=== PATIENT | male | born 1955 | race Caucasian/White ===

== ENCOUNTER 2017-06-13 23:25 | Inpatient (IN) | END 2017-06-23 17:12 | disposition home or self-care (01) | DRG 246 ==

== ENCOUNTER 2017-11-04 10:39 | Emergency (ER) | END 2017-11-04 11:54 | disposition home or self-care (01) ==

== ENCOUNTER 2017-11-04 17:12 | Emergency (ER) | END 2017-11-04 18:20 | disposition home or self-care (01) ==

== ENCOUNTER 2018-10-19 18:41 | Inpatient (IN) | payer OTHER ==
[~2018-10-19] VITALS: Ht 170.2 cm; Wt 84.7 kg
[~2018-10-19 18:41] MED LIST: ASPI-817 PO; ASPI81TA52 PO; ATOR-2 PO; BUME1TAB PO; CARV25TA79 PO; CLOP75TA27 PO; ERGO500013 PO; ERYT1OIN6 OP; HYDR-3672 PO; HYDR-4011 PO; INSU100C SQ; ISOS120T15 PO; ISOS30TA67 PO; LANT3I SC; LISI-313 PO; METO200T49 PO; MULTI PO; TICA90TA PO
[2018-10-19] MEDS ORDERED: morphine 4 MG/ML VIAL IV STA (19:17)
--- NOTE | 2018-10-19 19:31 | ERD ---
ER Documentation Chief Complaint Chief Complaint headache x 2 hours. just got dc'd from [facility], hx of nstemi, esrd HPI 62-year-old male with a history of CAD, CABG, CKD recently started on dialysis presenting with complaints of left-sided posterior severe 10 out of 10 neck pain that started 2 hours prior to arrival. He was just discharged home from another hospital, [facility], after a 2-week admission. Symptoms started 1 hour after d ischarge. He was reportedly admitted for shortness of breath. Had PCI with stent placement, after which he developed renal failure requiring dialysis. Today they remove the dialysis catheter from his left neck and placed one in his right chest. Currently denies any chest pain or shortness of breath, his only complaint is left-sided posterior neck pain that radiates into the back of his left head. Describes it as a stabbing pain, with no alleviating or exacerbating factors, pain is constant. He has never felt this before. No acute weakness or numbness. No dizziness. ROS All systems reviewed and are negative except as per history of present illness. Medications Home Meds Reported Medications Ergocalciferol (Vitamin D2) (VITAMIN D2) 50,000 Unit Capsule, 50817 UNIT PO EVERY WEDNESDAY, CAP 10/19/18 Multivitamins* (Theragran*) 1 Tab Tab, 1 TAB PO DAILY, TAB 10/19/18 Insulin Glargine* (Lantus*) 100 Unit/Ml Soln, 40 UNIT SC QHS, #1 VIAL 10/19/18 Hydralazine Hcl* (Hydralazine Hcl*) 50 Mg Tab, 50 MG PO TID, #90 TAB 10/19/18 Isosorbide Mononitrate* (Isosorbide Mononitrate*) 120 Mg Tab.sr.24h, 180 MG PO DAILY, TAB.SA 10/19/18 Lisinopril* (Lisinopril*) 5 Mg Tablet, 5 MG PO DAILY, #30 TAB 10/19/18 Metoprolol Succinate* (Toprol XL*) 200 Mg Tab.sr.24h, 200 MG PO DAILY, #30 TAB 10/19/18 Bumetanide* (Bumetanide*) 1 Mg Tablet, 1 MG PO BID, TAB 10/19/18 Clopidogrel Bisulfate (Clopidogrel) 75 Mg Tablet, 75 MG PO DAILY, #30 TAB 10/19/18 Atorvastatin* (Atorvastatin*) 80 Mg Tablet, 80 MG PO QHS, #30 TAB 10/19/18 Aspirin (Low Dose Aspirin) 81 Mg Tablet., 81 MG PO DAILY, #30 TAB 10/19/18 Discontinued Reported Medications Insulin Lispro (Humalog) 100 Unit/1 Ml Cartridge, 10 UNIT SQ AC MEALS, EA 06/13/17 Atorvastatin* (Atorvastatin*) 80 Mg Tablet, 80 MG PO QHS, #30 TAB 06/13/17 Carvedilol* (Carvedilol*) 25 Mg Tablet, 25 MG PO BID, #60 TAB 06/13/17 Discontinued Scripts Hydrocodone/Acetaminophen ([place] 5-325 Tablet) 1 Each Tablet, 1 TAB PO Q6H PRN for PAIN, #20 TAB Prov:YUE ZAMUDIO DO 11/04/17 Erythromycin Base (Erythromycin) 1 Gm Oint...g., 1 GM OP QID for corneal abrasion left eye for 7 Days, #1 Prov:YUE ZAMUDIO DO 11/04/17 Bumetanide* (Bumetanide*) 1 Mg Tablet, 1 MG PO DAILY, #30 TAB 3 Refills Prov:VELASQUEZ,PERFECTO V. FEATHER BONER 06/23/17 Isosorbide Mononitrate* (Isosorbide Mononitrate*) 30 Mg Tab.er.24h, 30 MG PO DAILY, #30 TAB 3 Refills Prov:VELASQUEZ,PERFECTO V. FEATHER BONER 06/23/17 Ticagrelor* (Brilinta*) 90 Mg Tablet, 90 MG PO BID, #30 TAB 3 Refills Prov:VELASQUEZ,PERFECTO V. FEATHER BONER 06/23/17 Aspirin* (Aspirin* EC) 81 Mg Tablet., 81 MG PO DAILY, #30 TAB 3 Refills Prov:VELASQUEZ,PERFECTO V. FEATHER BONER 06/23/17 Insulin Glargine* (Lantus*) 100 Unit/Ml Soln, 44 UNIT SC daily at 8 am, #30 DOSE Prov:VELASQUEZ,PERFECTO V. FEATHER BONER 06/23/17 Allergies Allergies: Coded Allergies: No Known Allergy (Unverified , 10/19/18) PMhx/Soc History of Surgery: Yes (cabg 2003 , pacer october 2016, abdominal aortic surgery NOS) Anesthesia Reaction: Yes Hx Neurological Disorder: No Hx Respiratory Disorders: No Hx Cardiac Disorders: Yes (pvd,htn) Hx Psychiatric Problems: No Hx Miscellaneous Medical Probl: No Hx Alcohol Use: No Hx Substance Use: No Hx Tobacco Use: No FmHx Family History: coronary disease Physical Exam Vitals Vital Signs Date Temp Pulse Resp B/P (MAP) Pulse Ox O2 O2 Flow FiO2 Time Delivery Rate 10/19/18 59 14 107/42 99 Room Air 21:00 (63) 10/19/18 66 14 114/46 99 Room Air 19:00 (68) 10/19/18 98.2 66 18 119/52 98 18:50 (74) Physical Exam Const: Appears to be in significant distress due to pain Head: Atraumatic Eyes: Normal Conjunctiva, PERRLA, EOMI, no nystagmus ENT: Normal External Ears, Nose and Mouth. Neck: Full range of motion. No meningismus. No midline or paraspinal muscle tenderness to palpation. Chest ; left anterior neck puncture wound healing from old HD catheter. Right upper chest HD catheter in place. Resp: Clear to auscultation bilaterally Cardio: Sternotomy scar noted to chest. Regular rate and rhythm, no murmurs. Difficult to palpate peripheral pulses, thready in all 4 extremities Abd: Midline abdominal surgical scar noted. No pulsatile masses. Soft, non tender, non distended. Normal bowel sounds Skin: No petechiae or rashes Back: No midline or flank tenderness Ext: No cyanosis, or edema Neur: Awake and alert, oriented x3, normal speech, cranial nerves intact, strength and sensations intact in all 4 extremities. Psych: Normal Mood and Affect Result Diagram: 10/19/18191510/19/181915 Results 24 hrs Laboratory Tests Test 10/19/18 19:16 White Blood Count 14.1 10^3/ul Red Blood Count 3.57 10^6/ul Hemoglobin 9.8 g/dl Hematocrit 29.4 % Mean Corpuscular Volume 82.4 fl Mean Corpuscular Hemoglobin 27.5 pg Mean Corpuscular Hemoglobin Concent 33.3 g/dl Red Cell Distribution Width 15.9 % Platelet Count 238 10^3/UL Mean Platelet Volume 12.4 fl Immature Granulocytes % 0.900 % Neutrophils % 74.0 % Lymphocytes % 10.9 % Monocytes % 13.3 % Eosinophils % 0.4 % Basophils % 0.5 % Nucleated Red Blood Cells % 0.0 /100WBC Immature Granulocytes # 0.120 10^3/ul Neutrophils # 10.4 10^3/ul Lymphocytes # 1.5 10^3/ul Monocytes # 1.9 10^3/ul Eosinophils # 0.1 10^3/ul Basophils # 0.1 10^3/ul Nucleated Red Blood Cells # 0.0 10^3/ul Prothrombin Time 13.4 Sec Prothrombin Time Ratio 1.0 INR International Normalized Ratio 1.01 Activated Partial Thromboplast Time 32.2 Sec Sodium Level 132 mmol/L Potassium Level 4.8 mmol/L Chloride Level 99 mmol/L Carbon Dioxide Level 18 mmol/L Anion Gap 15 Blood Urea Nitrogen 70 mg/dl Creatinine 5.15 mg/dl Est Glomerular Filtrat Rate mL/min 11 mL/min Glucose Level 196 mg/dl Calcium Level 8.7 mg/dl Troponin I 0.129 ng/ml Current Medications Medications Dose Sig/Jc Start Time Status Last (Trade) Ordered Route PRN Stop Time Admin Dose Reason Admin Morphine 6 mg ONCE STAT 10/19/18 DC 10/19/18 Sulfate IV 19:17 19:24 (morphine) 10/19/18 19:19 10 mg ONCE ONCE 10/19/18 DC 10/19/18 Metoclopramid IV 20:00 20:06 e HCl 10/19/18 20:01 (Reglan) IV Flush 10 ml STK-MED 10/19/18 DC (NS 10 ml) ONCE .ROUTE 20:35 10/19/18 20:36 Sodium 100 ml @ ud STK-MED 10/19/18 DC Chloride ONCE .ROUTE 20:35 10/19/18 20:36 Iodixanol 100 ml STK-MED 10/19/18 DC (Visipaque ONCE .ROUTE 20:35 Locm) 10/19/18 20:36 Fentanyl 50 mcg ONCE ONCE 10/19/18 DC 10/19/18 (Sublimaze) IV 22:00 21:57 10/19/18 22:01 Ondansetron 4 mg ER BRIDGE 10/19/18 HCl (Zofran PRN IV 23:00 10/20/18 Inj) NAUSEA/VOMITI 22:59 NG 650 mg ER BRIDGE 10/19/18 Acetaminophen PRN PO 23:00 10/20/18 (Tylenol .MILD PAIN 22:59 Tab) 1-3 OR TEMP IV Flush 3 ml PER 10/19/18 UNV (NS 3 ml) PROTOCOL IV 23:00 Ondansetron 4 mg Q6H PRN 10/19/18 UNV HCl (Zofran IV 23:00 Inj) NAUSEA/VOMITI NG 1 tab Q5M PRN 10/19/18 UNV Nitroglycerin SL .CHEST 23:00 PAIN (Nitroglyceri n (Sl Tab) 0.4 Mg) 650 mg Q6H PRN 10/19/18 UNV Acetaminophen PO .PAIN 1-3 23:00 (Tylenol OR TEMP Tab) Albuterol/ 3 ml Q2H RESP 10/19/18 UNV Ipratropium THERAPY PRN 23:00 (Duoneb) HHN SHORTNESS OF BREATH Aspirin 81 mg DAILY PO 10/20/18 UNV (Halfprin) 09:00 80 mg QHS PO 10/20/18 UNV Atorvastatin 21:00 Calcium (Lipitor) Bumetanide 1 mg BID PO 10/20/18 UNV (Bumex) 09:00 Clopidogrel 75 mg DAILY PO 10/20/18 UNV Bisulfate 09:00 (plaVIX) Insulin 40 units QHS SC 10/20/18 UNV Glargine 21:00 (Lantus) Isosorbide 180 mg DAILY PO 10/20/18 UNV Mononitrate 09:00 (Imdur) Lisinopril 5 mg DAILY PO 10/20/18 UNV (Zestril) 09:00 Metoprolol 200 mg DAILY PO 10/20/18 UNV Succinate 09:00 (Toprol Xl) 1 tab DAILY PO 10/20/18 UNV Multivitamins 09:00 Therapeutic (Theragran) Procedures/MDM EMERGENT LABS AND DIAGNOSTIC STUDIES: Lab Results above were reviewed and interpreted by me. CBC: Leukocytosis, unclear etiology. Mild anemia. BMP: Evidence of chronic renal failure with elevated BUN and creatinine. No significant electrolyte abnormalities. Hyperglycemic. Troponin elevated, concerning for possible myocardial injury versus elevation due to ESRD 12-lead EKG was interpreted by Eulalio Pires MD: A Paced at rate of 60 beats per minute Incomplete left bundle branch block LVH with repolarization abnormality Abnormal EKG, no STEMI Radiology Results as interpreted by Radiology below were reviewed by Destiny Pires MD: Chest x-ray does not show any significant abnormalities other than evidence of mild interstitial edema Initial Nursing notes reviewed. Previous Medical Records requested via the Electronic Health Record. EMERGENCY DEPARTMENT COURSE / MEDICAL DECISION MAKING: patient is presenting with severe left-sided posterior neck pain of unclear etiology. Vitals were notable for borderline hypotension. He was neurologi star intact on my exam. However given his history of vascular disease, I was concerned about possible carotid versus vertebral dissection. Discussed risks and benefits of CTA. Family and patient were agreeable. CTA was done and did not show any evidence of acute occlusion or dissection. CT head was also negative for intracranial hemorrhage. Patient was treated for pain without significant improvement of his symptoms. Troponin was slightly elevated, but I suspect this is likely secondary to decreased clearance due to kidney disease and less likely non-ST elevation VT. In any case, I do not feel the patient is stable for discharge and will require admission for further work-up. He will also need dialysis due to the contrast load he received today. Emergent bedside echocardiogram was also ordered and did not show any evidence of pericardial effusion or tamponade. Results are pending. Dr. Salazar, cattle trader personal lines sales executive, was notified of the patient Accepting Care Team: Current data and ongoing care discussed. Time: Time of admission Primary Provider: Dr. Mi Consulting: Dr. Salazar Outstanding Data: none Departure Diagnosis: Primary Impression: Posterior neck pain Additional Impressions: Headache Headache type: unspecified Headache chronicity pattern: acute headache Intractability: intractable Qualified Codes: R51 - Headache ESRD on hemodialysis Elevated troponin Condition: RL Whittington MD Oct 19, 2018 19:31
[2018-10-19] MEDS ORDERED: METOCLOPRAMIDE 10 MG INJ IV ONE (20:00)
[2018-10-19] MEDS ORDERED: SOD CHLORIDE 0.9% 100 ML ONE (20:35)
[2018-10-19] MEDS ORDERED: IODIXANOL LOCM 100 ML BTL ONE (20:35)
[2018-10-19] MEDS ORDERED: FENTAnyl 50 MCG/ML VIAL IV ONE (22:00)
[2018-10-19] MEDS ORDERED: ONDANSETRON 4 MG INJ IV PRN ×2 (23:00)
[2018-10-19] MEDS ORDERED: ACETAMINOPHEN 325 MG TAB PO PRN ×2 (23:00)
[2018-10-19] MEDS ORDERED: NITROGLYCERIN (SL) 0.4 MG TAB SL PRN (23:00)
[2018-10-19] MEDS ORDERED: ALBUTEROL/IPRATROPIUM (NEB) 3 ML AMP HHN PRN (23:00)
[2018-10-19] MEDS ORDERED: NACL 0.9% 3 ML SYG IV SCH (23:00)
--- NOTE | 2018-10-19 23:00 | HP ---
Date/Time of Note Date/Time of Note DATE: 10/19/18 TIME: 23:00 Assessment/Plan VTE Prophylaxis Pharmacological prophylaxis: heparin Lines/Catheters IV Catheter Type (from Nrsg): Saline Lock Assessment/Plan Assessment/Plan 1. Left-sided neck pain -CT angiogram with multiple arterial occlusion, including right internal carotid occlusion, severe focal stenosis of right cervical vertebral artery and left internal carotid severe calcification and narrowing. -I am not sure if his pain is actually related to this. -Pain management -Vascular surgeon lelo 2. Bilateral internal carotid, right cervical vertebral artery occlusion/stenosis -Patient pointed to the right side of his neck and said " closed long time", so it seems like we are mainly dealing with a chronic issue here -Vascular surgeon consult 3. Positive troponin -Patient recently had a stent placed at [facility] and as such rise in troponin is related to that as well as ESRD -Cardiology consult -Continue antiplatelet and cardiac medications 4. History of CAD and CABG -See #3 5. ESRD on HD: Nephrology for dialysis 6. Cardiomyopathy with systolic dysfunction: Continue cardiac meds including Bumex 7. Diabetes: Check A1c. Insulin Result Diagram: 10/19/18191510/19/181915 Results 24hrs Laboratory Tests Test 10/19/18 19:16 White Blood Count 14.1 #H Red Blood Count 3.57 L Hemoglobin 9.8 L Hematocrit 29.4 L Mean Corpuscular Volume 82.4 Mean Corpuscular Hemoglobin 27.5 L Mean Corpuscular Hemoglobin Concent 33.3 Red Cell Distribution Width 15.9 H Platelet Count 238 # Mean Platelet Volume 12.4 H Immature Granulocytes % 0.900 H Neutrophils % 74.0 Lymphocytes % 10.9 L Monocytes % 13.3 H Eosinophils % 0.4 Basophils % 0.5 Nucleated Red Blood Cells % 0.0 Immature Granulocytes # 0.120 H Neutrophils # 10.4 H Lymphocytes # 1.5 Monocytes # 1.9 H Eosinophils # 0.1 Basophils # 0.1 Nucleated Red Blood Cells # 0.0 Prothrombin Time 13.4 Prothrombin Time Ratio 1.0 INR International Normalized Ratio 1.01 Activated Partial Thromboplast Time 32.2 Sodium Level 132 L Potassium Level 4.8 Chloride Level 99 Carbon Dioxide Level 18 L Anion Gap 15 H Blood Urea Nitrogen 70 H Creatinine 5.15 H Est Glomerular Filtrat Rate mL/min 11 L Glucose Level 196 Calcium Level 8.7 Troponin I 0.129 *H HPI/ROS Admit Date/Time Admit Date/Time Hx of Present Illness Patient is a 62-year-old male with a history of CAD/CABG, cardiomyopathy with systolic dysfunction, PAD, diabetes, ESRD on HD. Patient presented to ER complaining of left-sided neck pain, which is been going on for 1 day. Patient was admitted to [facility] recently where stent was placed. He also said he was a started on dialysis. He was just discharged yesterday and when he gets home that when left-sided neck pain started. He also complains of having had headache. No limitation with range of motion. Denied trauma. In the ER, head CT shows old lacunar infarct. CT angiogram of the head and neck results as shown below. Patient was not surprised about the CT angiogram finding. He pointed to the right side of his neck and said " closed long time". In the ER, he also was found to have a positive troponin of 0.129. ER physician discussed finding with on-call vacuum bottle assembler, Dr. Salazar. EKG showed incomplete LBBB, no ST elevation or depression. CTA neck: 1. Occlusion of the right internal carotid artery at its origin, continuing to the intracranial segment.. 2. Moderate to prominent calcification at the left carotid bifurcation, with 40% stenosis of the proximal left ICA. Mild to moderate areas of narrowing of the distal left cervical ICA. 3. Severe focal stenosis of the right cervical vertebral artery at the C4 level. Moderate stenosis at the origin of the left vertebral artery. CTA head: 4. Partial reconstitution of the right cavernous and supraclinoid ICA. 5. Patent right middle cerebral artery, moderately decreased in caliber, likely related to decreased flow. Moderate to severe proximal narrowing of the right anterior cerebral artery A1 segment. 6. Moderate to severe calcification and narrowing through the cavernous left internal carotid artery. 7. Moderate focal stenosis of the right intracranial vertebral artery, and mild to moderate areas of narrowing of the left intracranial vertebral artery. 8. Moderate stenosis of the left posterior cerebral artery, the P2 segment, and moderate narrowing of the right posterior cerebral artery, P3 segment. PMH/Family/Social Past Medical History Medical History: other (See HPI) Medications Current Medications Ondansetron HCl (Zofran Inj) 4 mg ER BRIDGE PRN IV NAUSEA/VOMITING; Start at 23:00; Stop 10/20/18 at 22:59 Acetaminophen (Tylenol Tab) 650 mg ER BRIDGE PRN PO .MILD PAIN 1-3 OR TEMP; Start 10/19/18 at 23:00; Stop 10/20/18 at 22:59 Coded Allergies: No Known Allergy (Unverified , 10/19/18) Past Surgical History Past Surgical Hx: angioplasty, coronary bypass surgery Family History Significant Family History: heart disease, diabetes, hypertension Social History Alcohol Use: none Smoking Status: Never smoker Drug Use: none Exam/Review of Systems Vital Signs Vitals Vital Signs Date Temp Pulse Resp B/P (MAP) Pulse Ox O2 O2 Flow FiO2 Time Delivery Rate 10/19/18 59 14 107/42 99 Room Air 21:00 (63) 10/19/18 98.2 18:50 Exam Constitutional: other (No acute distress) Head: normocephalic, atraumatic Eyes: EOMI, PERRL Neck: other (Examination of the neck did not reveal any obvious deformity. No tenderness. He has full range of motion.) Respiratory: clear to auscultation, normal air movement Cardiovascular: regular rate and rhythm, nl pulses Gastrointestinal: soft, non-tender Extremities: normal pulses Neurological: nl mental status, nl speech, nl strength TUYET STEWART MD Oct 19, 2018 23:00
[2018-10-19] MEDS ORDERED: SOD CHLORIDE 0.9% 500 ML IV STA (23:35)
[2018-10-20] VITALS (20 sets, daily range): BP systolic 107–148; BP diastolic 55–97; PULSE 58–101; RESP 16–20; Ht 170.2 cm; Wt 84.7 kg
[2018-10-20] MEDS: BUMETANIDE 1 MG TAB PO SCH ×2 (05:31→17:43)
[2018-10-20] MEDS ORDERED: HEPARIN 1000 UNITS/ML 10 ML INJ IV PRN ×2 (07:30)
[2018-10-20] MEDS: LISINOPRIL 5 MG TAB PO SCH (08:09)
[2018-10-20] MEDS: MULTIVITAMINS THERAPEUTIC TAB PO SCH (08:09)
[2018-10-20] MEDS: ISOSORBIDE MONONITRATE(SR)60 MG TAB PO SCH (08:09)
[2018-10-20] MEDS: CLOPIDOGREL 75 MG TAB PO SCH (08:10)
[2018-10-20] MEDS: ASPIRIN (EC) 81 MG TAB PO SCH (08:10)
[2018-10-20] MEDS: HEPARIN 25000 UNITS/D5W 250 ML IV SCH ×2 (08:24→17:23)
[2018-10-20] MEDS ORDERED: METOPROLOL (XL) 100 MG TAB PO SCH (09:00)
--- NOTE | 2018-10-20 14:10 | RADRPT ---
Echocardiogram Report Patient Name: Guerline YORKtient ID: [id number] : 1955 (62y 11m)Study Date: 10/20/2018 8:56:35 AM Gender: MAccession #: [id number] Tech: Trace Santana [facility] Location: 7-A Ref.Physician: TUYET STEWART Height(Cm): BSA: Weight(Kg): Quality: AdequateOrder Physician: TUYET STEWART Account #: Procedures: Echocardiographic Report: Transthoracic echocardiogram with complete 2D, M-Mode, and doppler examination. Indications: Positive Troponin. Measurements: 2D/M Mode Doppler Measurement Value Normal Range Measurement Value Normal Range LVIDd 2D 5.2 [ 4.2 - 5.8 ] cm AV Peak Catr[place] 1.2 [ 100.0 - 170.0 ] cm/sec LVIDs 2D 4.1 [ 2.5 - 4.0 ] cm AV Peak PG 6.0 [ 2.0 - 9.0 ] mmHg LVPWd 2D 1.2 [ 0.6 - 1.0 ] cm LVOT Peak [place] 0.7 [ 70.0 - 110.0 ] cm/sec IVSd 2D 1.2 [ 0.6 - 1.0 ] cm LVOT Peak PG 2.0 [ 2.0 - 6.0 ] mmHg AoR Diam 2D 2.8 [ 2.6 - 3.4 ] cm MV E Peak Catracho 1.2 [ 60.0 - 130.0 ] cm/sec EDV 2D 128.0 [ 62.0 - 150.0 ] ml MV A Peak Catracho 0.3 [ 100.0 - 120.0 ] cm/sec ESV 2D 72.5 [ 21.0 - 61.0 ] ml MV E/A 4.5 [ 0.8 - 1.5 ] ratio EF 2D 43.4 [ 52.0 - 72.0 ] percent MV Decel Time 194 [ 104 - 258 ] msec LA Dimen 2D 4.3 [ 3.0 - 4.0 ] cm Lat E` Catracho 0.1 [ 10.0 - 15.0 ] cm/sec Lateral E/E` 19.2 [ 1.0 - 2.0 ] ratio Med E` Catracho 0.1 cm/sec MV E/A 4.5 [ 0.8 - 1.5 ] ratio TR Peak Catracho 3.0 [ 100.0 - 280.0 ] cm/sec TR Peak PG 35.0 mmHg RVSP 50.0 [ 10.0 - 36.0 ] mmHg Findings: Left Ventricle: Normal left ventricular cavity size. Left ventricular wall thickness upper limits of normal. Mild global left ventricular systolic dysfunction. Paradoxical septal motion consistent with IVCD or bundle branch block. Ejection fraction is visually estimated at 40-45 %. Tissue Doppler/Mitral Doppler indices are consistent with restrictive physiology with markedly elevated left atrial pressure (Stage III-IV diastolic dysfunction). Right Ventricle: Normal right ventricular size. Normal right ventricular systolic function. Left Atrium: There is mild enlargement of left atrium. Right Atrium: The right atrium is normal in size. Mitral Valve: Mild mitral leaflet calcification. Mild mitral annular calcification. Mild mitral valve regurgitation. Aortic Valve: No significant aortic stenosis or insufficiency. Aortic cusps appear mildly calcified. Tricuspid Valve: Normal appearance of the tricuspid valve. The estimated Peak RVSP is 50 mmHg. There is mild tricuspid regurgitation. Pericardium: Normal pericardium with no significant pericardial effusion. Aorta: Normal aortic root. IVC: Dilated inferior vena cava with poor inspiratory collapse consistent with elevated right atrial pressures. Conclusions: Normal left ventricular cavity size. Left ventricular wall thickness upper limits of normal. Mild global left ventricular systolic dysfunction. Paradoxical septal motion consistent with IVCD or bundle branch block. Ejection fraction is visually estimated at 40-45 %. Tissue Doppler/Mitral Doppler indices are consistent with restrictive physiology with markedly elevated left atrial pressure (Stage III-IV diastolic dysfunction). There is mild enlargement of left atrium. Mild mitral leaflet calcification. Mild mitral annular calcification. Mild mitral valve regurgitation. Normal appearance of the tricuspid valve. The estimated Peak RVSP is 50 mmHg. There is mild tricuspid regurgitation. Normal pericardium with no significant pericardial effusion. Left pleural effusion seen. Electronically Signed By: Laureano Salazar 2018-10-20 14:10:31 PDT
--- NOTE | 2018-10-20 14:16 | RADRPT ---
Echocardiogram Report Patient Name: Guerline YORKtient ID: [id number] : 1955 (62y 11m)Study Date: 10/19/2018 10:40:29 PM Gender: MAccession #: [id number] Tech: Trace Santana [facility] Location: ER-4 Ref.Physician: RL STRINGER Height(Cm): BSA: Weight(Kg): Quality: AdequateOrder Physician: RL STRINGER Account #: Procedures: Echocardiographic Report: Transthoracic echocardiogram examination. Indications: R/O Effusion. Measurements: 2D/M Mode Doppler Measurement Value Normal Range Measurement Value Normal Range LVIDd 2D 5.5 [ 4.2 - 5.8 ] cm TR Peak Catracho 3.1 [ 100.0 - 280.0 ] cm/sec LVIDs 2D 3.9 [ 2.5 - 4.0 ] cm TR Peak PG 38.0 mmHg IVSd 2D 1.0 [ 0.6 - 1.0 ] cm RVSP 46.0 [ 10.0 - 36.0 ] mmHg AoR Diam 2D 2.7 [ 2.6 - 3.4 ] cm LA Dimen 2D 4.1 [ 3.0 - 4.0 ] cm Findings: Left Ventricle: Normal left ventricular cavity size. Mild left ventricular systolic dysfunction. Normal left ventricular wall thickness. Paradoxical septal motion consistent with IVCD or left bundle branch block. The left ventricular ejection fraction is visually estimated at 45-50 %. Right Ventricle: Normal right ventricular systolic function. Left Atrium: There is mild enlargement of left atrium. Right Atrium: The right atrium is normal in size and appearance. Mitral Valve: Mild mitral annular calcification. Calcified Leaflets Mitral valve leaflet appear mildly clacified. Mild mitral regurgitation. Aortic Valve: Aortic cusps appear mildly calcified. Tricuspid Valve: Normal appearance of the tricuspid valve. The estimated Peak RVSP is 46 mmHg. There is mild tricuspid regurgitation. Pericardium: Normal pericardium with no significant pericardial effusion. IVC: Dilated inferior vena cava with normal respiratory collapse. Conclusions: Normal left ventricular cavity size. Mild left ventricular systolic dysfunction. Normal left ventricular wall thickness. Paradoxical septal motion consistent with IVCD or left bundle branch block. The left ventricular ejection fraction is visually estimated at 45-50 %. Normal right ventricular systolic function. There is mild enlargement of left atrium. Mild mitral annular calcification. Calcified Leaflets Mitral valve leaflet appear mildly clacified. Mild mitral regurgitation. Normal appearance of the tricuspid valve. The estimated Peak RVSP is 46 mmHg. There is mild tricuspid regurgitation. Normal pericardium with no significant pericardial effusion. Electronically Signed By: Laureano Salazar 2018-10-20 14:16:09 PDT
--- NOTE | 2018-10-20 15:48 | PN ---
Date/Time of Note Date/Time of Note DATE: 10/20/18 TIME: 15:28 Assessment/Plan VTE Prophylaxis Risk score (from Nsg)>0 risk: 5 SCD applied (from Nsg): Yes Pharmacological prophylaxis: heparin Lines/Catheters IV Catheter Type (from Nrsg): HD CATH Urinary Cath still in place: No Assessment/Plan Hospital Course 62 yo M who presented to ER with pain in the L side of his neck where he had just recently had HD cathether removed but with a concerning hx of recent angiogram and stent placement admitted and managed as follow: L sided neck pain: -may be indicative of ACS or may just be DIANA from recent dialysis access placement -CTA neck shows diffuse Carotid arterial disease and occlusion -pain control, Vascular consult pending -see # 2 re: ACS 2. Troponin elevation s/p recent NSTEMI status post recent PCI, -Troponin elevation here is likely residual from prior -patient is on heparin drip and plavix -cardio consult, follow recommendations -Echo showed Mild cardiomyopathy, EF 40 to 45% and restrictive picture with diastolic dysfunction, stage III-IV 3. ESRD on HD -Nephro consult to resume HD 4. DM 2 -resumed on SSI and basal / premeal insulin 5. Chronic CM and diastolic dysfunction -patient maintained on home Bumex in addition to routine HD -will switch Bumex to IV in view of interstitial edema on CXR Dispo: -continue tele and routine supportive care -further interventions per course Result Diagram: 10/20/1852110/20/18521 Results 24hrs Laboratory Tests Test 10/19/18 19:16 10/19/18 23:51 10/20/18 05:21 10/20/18 05:22 White Blood Count 14.1 #H 10.3 # Red Blood Count 3.57 L 3.44 L Hemoglobin 9.8 L 9.5 L Hematocrit 29.4 L 29.1 L Mean Corpuscular 82.4 84.6 Volume Mean Corpuscular 27.5 L 27.6 L Hemoglobin Mean Corpuscular 33.3 32.6 Hemoglobin Concent Red Cell Distribution 15.9 H 16.0 H Width Platelet Count 238 # 186 # Mean Platelet Volume 12.4 H 11.4 H Immature Granulocytes 0.900 H 0.700 H % Neutrophils % 74.0 68.3 Lymphocytes % 10.9 L 16.4 Monocytes % 13.3 H 13.0 H Eosinophils % 0.4 1.1 Basophils % 0.5 0.5 Nucleated Red Blood 0.0 0.0 Cells % Immature Granulocytes 0.120 H 0.070 H # Neutrophils # 10.4 H 7.1 Lymphocytes # 1.5 1.7 Monocytes # 1.9 H 1.3 H Eosinophils # 0.1 0.1 Basophils # 0.1 0.1 Nucleated Red Blood 0.0 0.0 Cells # Prothrombin Time 13.4 Prothrombin Time Ratio 1.0 INR International 1.01 Normalized Ratio Activated 32.2 Partial Thromboplast Time Sodium Level 132 L 135 Potassium Level 4.8 4.7 Chloride Level 99 100 Carbon Dioxide Level 18 L 20 L Anion Gap 15 H 15 H Blood Urea Nitrogen 70 H 73 H Creatinine 5.15 H 5.34 H Est Glomerular Filtrat 11 L 11 L Rate mL/min Glucose Level 196 174 Calcium Level 8.7 8.3 L Troponin I 0.129 *H 0.122 *H 0.126 *H Creatine Kinase 91 80 Creatine Kinase Index 4.5 5.0 Creatinine Kinase MB 4.08 H 3.98 H (Mass) Hemoglobin A1c 6.6 H Magnesium Level 2.4 Total Bilirubin 0.3 Direct Bilirubin 0.00 Indirect Bilirubin 0.3 Aspartate Amino 21 Transf (AST/SGOT) Alanine 19 Aminotransferase (ALT/ SGPT) Alkaline Phosphatase 94 Total Protein 6.7 Albumin 3.5 Globulin 3.20 Albumin/Globulin Ratio 1.09 Triglycerides Level 147 Cholesterol Level 116 LDL Cholesterol, 54 Calculated HDL Cholesterol 33 Cholesterol/HDL Ratio 3.5 Thyroid Stimulating 4.330 Hormone (TSH) Test 10/20/18 08:24 10/20/18 11:33 Bedside Glucose 142 Hepatitis B Surface NEGATIVE Antigen Subjective 24 Hr Interval Summary Free Text/Dictation no complaints, was sleeping comfortably Exam/Review of Systems Exam Vitals Vital Signs Date Temp Pulse Resp B/P (MAP) Pulse Ox O2 O2 Flow FiO2 Time Delivery Rate 10/20/18 97.4 65 18 123/57 99 Room Air 11:24 (79) Intake and Output 10/19/18 10/19/18 10/20/18 1515:00 23:00 07:00 IntakeIntake Total 400 ml BalanceBalance 400 ml Exam General: A&O x3, answering questions appropriately HEENT: NC/ AT. PERRL. EOM intact Neck: supple CVS: S1, S2, RRR. no murmurs. no pain on chest wall palpation Lungs: CTA b/l. no wheezing or rhonchi Abd: soft, nontender, +BS Ext: moving all extremities skin: no rashes Results Results 24hrs Laboratory Tests Test 10/19/18 19:16 10/19/18 23:51 10/20/18 05:21 10/20/18 05:22 White Blood Count 14.1 #H 10.3 # Red Blood Count 3.57 L 3.44 L Hemoglobin 9.8 L 9.5 L Hematocrit 29.4 L 29.1 L Mean Corpuscular 82.4 84.6 Volume Mean Corpuscular 27.5 L 27.6 L Hemoglobin Mean Corpuscular 33.3 32.6 Hemoglobin Concent Red Cell Distribution 15.9 H 16.0 H Width Platelet Count 238 # 186 # Mean Platelet Volume 12.4 H 11.4 H Immature Granulocytes 0.900 H 0.700 H % Neutrophils % 74.0 68.3 Lymphocytes % 10.9 L 16.4 Monocytes % 13.3 H 13.0 H Eosinophils % 0.4 1.1 Basophils % 0.5 0.5 Nucleated Red Blood 0.0 0.0 Cells % Immature Granulocytes 0.120 H 0.070 H # Neutrophils # 10.4 H 7.1 Lymphocytes # 1.5 1.7 Monocytes # 1.9 H 1.3 H Eosinophils # 0.1 0.1 Basophils # 0.1 0.1 Nucleated Red Blood 0.0 0.0 Cells # Prothrombin Time 13.4 Prothrombin Time Ratio 1.0 INR International 1.01 Normalized Ratio Activated 32.2 Partial Thromboplast Time Sodium Level 132 L 135 Potassium Level 4.8 4.7 Chloride Level 99 100 Carbon Dioxide Level 18 L 20 L Anion Gap 15 H 15 H Blood Urea Nitrogen 70 H 73 H Creatinine 5.15 H 5.34 H Est Glomerular Filtrat 11 L 11 L Rate mL/min Glucose Level 196 174 Calcium Level 8.7 8.3 L Troponin I 0.129 *H 0.122 *H 0.126 *H Creatine Kinase 91 80 Creatine Kinase Index 4.5 5.0 Creatinine Kinase MB 4.08 H 3.98 H (Mass) Hemoglobin A1c 6.6 H Magnesium Level 2.4 Total Bilirubin 0.3 Direct Bilirubin 0.00 Indirect Bilirubin 0.3 Aspartate Amino 21 Transf (AST/SGOT) Alanine 19 Aminotransferase (ALT/ SGPT) Alkaline Phosphatase 94 Total Protein 6.7 Albumin 3.5 Globulin 3.20 Albumin/Globulin Ratio 1.09 Triglycerides Level 147 Cholesterol Level 116 LDL Cholesterol, 54 Calculated HDL Cholesterol 33 Cholesterol/HDL Ratio 3.5 Thyroid Stimulating 4.330 Hormone (TSH) Test 10/20/18 08:24 10/20/18 11:33 Bedside Glucose 142 Hepatitis B Surface NEGATIVE Antigen Imaging Imaging AMENDMENT: 10/19/2018 8:37:31 PM Leora Dean M.d Examination was further reviewed. There is a 5.4 cm linear radiopaque density superimposing the left supraclavicular fossa which may represent external art ifact or foreign body. Recommend clinical correlation. This finding was discussed with Dr. Stringer by Dr. Dean at 08:35 p.m. on 10/19/2018. PROCEDURE: XR chest. CLINICAL INDICATION: Pain TECHNIQUE: Portable AP view of the chest was obtained. COMPARISON: 06/20/2017 FINDINGS: Right internal jugular dialysis catheter is in place with tip superimposing superior cavoatrial junction. Heart remains mildly enlarged. Aorta is atherosclerotic. There is no pneumothorax or pleural effusion. There are mild bibasilar interstitial opacities. Median sternotomy wires are again seen. IMPRESSION: 1. Mild bibasilar interstitial opacities, may represent trace interstitial ed alise or atypical infectious/inflammatory process. 2. Cardiomegaly and aortic atherosclerosis. RPTAT:HAJM Physician Dory Date Time Electronically viewed and signed by Angie Dean Physician on 10/19/2018 20:39 RM/ CC: RL STRINGER MD [phone] Medications Medication Current Medications IV Flush (NS 3 ml) 3 ml PER PROTOCOL IV ; Start 10/19/18 at 23:00 Ondansetron HCl (Zofran Inj) 4 mg Q6H PRN IV NAUSEA/VOMITING; Start 10/19/18 at 23:00 Nitroglycerin (Nitroglycerin (Sl Tab) 0.4 Mg) 1 tab Q5M PRN SL .CHEST PAIN; Start 10/19/18 at 23:00 Acetaminophen (Tylenol Tab) 650 mg Q6H PRN PO .PAIN 1-3 OR TEMP; Start 10/19/18 at 23:00 Albuterol/ Ipratropium (Duoneb) 3 ml Q2H RESP THERAPY PRN HHN SHORTNESS OF BREATH; Start 10/19/18 at 23:00 Aspirin (Halfprin) 81 mg DAILY PO Last administered on 10/20/18 08:10; Admin Dose 81 MG; Start 10/20/18 at 09:00 Atorvastatin Calcium (Lipitor) 80 mg QHS PO ; Start 10/20/18 at 21:00 Bumetanide (Bumex) 1 mg BID DIURETICS PO Last administered on 10/20/18at 05:31; Admin Dose 1 MG; Start 10/20/18 at 06:00 Clopidogrel Bisulfate (plaVIX) 75 mg DAILY PO Last administered on 10/20/18at 08:10; Admin Dose 75 MG; Start 10/20/18 at 09:00 Insulin Glargine (Lantus) 40 units QHS SC ; Start 10/20/18 at 21:00 Isosorbide Mononitrate (Imdur) 180 mg DAILY PO Last administered on 10/20/18at 08:09; Admin Dose 180 MG; Start 10/20/18 at 09:00 Lisinopril (Zestril) 5 mg DAILY PO Last administered on 10/20/18at 08:09; Admin Dose 5 MG; Start 10/20/18 at 09:00 Metoprolol Succinate (Toprol Xl) 200 mg DAILY PO Last administered on 10/20/18 08:10; Admin Dose 200 MG; Start 10/20/18 at 09:00 Multivitamins Therapeutic (Theragran) 1 tab DAILY PO Last administered on 10/20/18 08:09; Admin Dose 1 TAB; Start 10/20/18 at 09:00 Heparin Sodium (Porcine) 250 ml @ 10 mls/hr Q24H IV Last administered on 10/20/18at 08:24; Admin Dose 10 MLS/HR; Start 8/1/19 at 07:30 Heparin Sodium (Porcine) (Heparin (1000 Units/ml)) 4,000 unit PRN PRN IV PENDING LAB VALUE; Start 10/20/18 at 07:30 Epoetin Getachew-epbx (Retacrit (Esrd)) 10,000 unit TuThSa@1700 SC ; Start 10/20/18 at 17:00 GAL SANTIAGO Oct 20, 2018 15:38
[2018-10-20] MEDS ORDERED: DEXTROSE 50% 50 ML SYRINGE IV PRN ×2 (16:30)
[2018-10-20] MEDS ORDERED: GLUCAGON 1 MG INJ IM PRN (16:30)
[2018-10-20] MEDS ORDERED: GLUCOSE GEL 15 GRAM TUBE BUCCAL PRN (16:30)
[2018-10-20] MEDS ORDERED: GLUCOSE GEL 15 GRAM TUBE PO PRN ×2 (16:30)
[2018-10-20] MEDS ORDERED: EPOETIN ALFA-EPBX (ESRD) 10,000 UNIT/ML VIAL SC SCH (17:00)
[2018-10-20] MEDS ORDERED: morphine 2 MG INJ ONE ×2 (17:02→17:17)
[2018-10-20] MEDS ORDERED: morphine 2 MG INJ IV STA ×2 (17:23→17:24)
[2018-10-20] MEDS ORDERED: LORAZEPAM 2 MG INJ IV ONE (17:30)
[2018-10-20] MEDS ORDERED: NITROGLYCERIN 2% 1 GM OINT PKT ONE (17:41)
[2018-10-20] MEDS ORDERED: NITROGLYCERIN 2% 1 GM OINT PKT TD ONE (18:00)
[2018-10-20] MEDS ORDERED: morphine 2 MG INJ IV PRN (18:00)
[2018-10-20] MEDS: INSULIN ASPART [NOVOLOG] 3 ML PEN SC SCH ×2 (18:07→21:54)
--- NOTE | 2018-10-20 18:22 | CONS ---
Assessment/Plan Assessment/Plan Hospital Course (Demo Recall) Chest pain CAD with history of PCI at [facility] Minimally elevated troponin Ischemic cardia myopathy Acute kidney injury new on hemodialysis Initially patient with neck pain and denies shortness of breath. I left the room and was called back an hour later with patient with severe chest pain, arm numbness and shortness of breath. Repeat ECG done at this time with no signif icant changes compared to prior. Patient given nitroglycerin, morphine with mild improvement in symptoms I did reach out to [facility] and spoke to Dr. Marks, nursing educator who did patient's recent intervention. As mentioned, patient was discharged from their facility yesterday. He told me he knows the patient well and does have a history of anxiety with episodes like this in the hospital. I did discuss given the situation with our cardiac Juvenile Justice Officer, would ideally request transfer back to their facility if patient needs repeat angiogram. He was in agreement. I have spoken to vocational case manager and nursing supervisor edging We will continue patient on IV heparin, check serial cardiac enzymes, nitroglycerin, continue dual antiplatelet therapy, BB Spoke to nephrology, plan for hemodialysis today Consultation Date/Type/Reason Admit Date/Time Type of Consult Cardiology Reason for Consultation Elevated troponin after recent PCI Date/Time of Note DATE: 10/20/18 TIME: 16:38 Hx of Present Illness This is a 61-year-old male with past medical history of CAD status post CABG, multiple PCI's who was in outside hospital for approximately 2 weeks. Patient underwent left heart catheterization and 3 stents were placed. Patient was also started on hemodialysis. Patient was discharged yesterday from outside facility. Patient states he had his hemodialysis catheter that was on the left side of his neck removed yesterday. When he went home, patient with severe neck and posterior head pain. No chest pain, shortness of breath, palpitations or dizziness. Because of the above, patient came to emergency room. Laboratory studies demonstrated elevated troponin for this reason cardiology condition was requested. Patient denies exertional chest pain, shortness of breath, palpitations or dizziness. His neck pain has been improving. 12 point review of systems was performed with all pertinent positives and negatives mentioned above and all else is negative Past Medical History Medical History: congestive heart failure, coronary artery disease, diabetes, hypertension, renal disease Home Meds Reported Medications Ergocalciferol (Vitamin D2) (VITAMIN D2) 50,000 Unit Capsule, 98455 UNIT PO EVERY WEDNESDAY, CAP 10/19/18 Multivitamins* (Theragran*) 1 Tab Tab, 1 TAB PO DAILY, TAB 10/19/18 Insulin Glargine* (Lantus*) 100 Unit/Ml Soln, 40 UNIT SC QHS, #1 VIAL 10/19/18 Hydralazine Hcl* (Hydralazine Hcl*) 50 Mg Tab, 50 MG PO TID, #90 TAB 10/19/18 Isosorbide Mononitrate* (Isosorbide Mononitrate*) 120 Mg Tab.sr.24h, 180 MG PO DAILY, TAB.SA 10/19/18 Lisinopril* (Lisinopril*) 5 Mg Tablet, 5 MG PO DAILY, #30 TAB 10/19/18 Metoprolol Succinate* (Toprol XL*) 200 Mg Tab.sr.24h, 200 MG PO DAILY, #30 TAB 10/19/18 Bumetanide* (Bumetanide*) 1 Mg Tablet, 1 MG PO BID, TAB 10/19/18 Clopidogrel Bisulfate (Clopidogrel) 75 Mg Tablet, 75 MG PO DAILY, #30 TAB 10/19/18 Atorvastatin* (Atorvastatin*) 80 Mg Tablet, 80 MG PO QHS, #30 TAB 10/19/18 Aspirin (Low Dose Aspirin) 81 Mg Tablet.dr, 81 MG PO DAILY, #30 TAB 10/19/18 Discontinued Reported Medications Insulin Lispro (Humalog) 100 Unit/1 Ml Cartridge, 10 UNIT SQ AC MEALS, EA 06/13/17 Atorvastatin* (Atorvastatin*) 80 Mg Tablet, 80 MG PO QHS, #30 TAB 06/13/17 Carvedilol* (Carvedilol*) 25 Mg Tablet, 25 MG PO BID, #60 TAB 06/13/17 Discontinued Scripts Hydrocodone/Acetaminophen (Leupp 5-325 Tablet) 1 Each Tablet, 1 TAB PO Q6H PRN for PAIN, #20 TAB Prov:YUE ZAMUDIO DO 11/04/17 Erythromycin Base (Erythromycin) 1 Gm Oint...g., 1 GM OP QID for corneal abrasion left eye for 7 Days, #1 Prov:YUE ZAMUDIO DO 11/04/17 Bumetanide* (Bumetanide*) 1 Mg Tablet, 1 MG PO DAILY, #30 TAB 3 Refills Prov:VELASQUEZ,[employer]OCIATE 06/23/17 Isosorbide Mononitrate* (Isosorbide Mononitrate*) 30 Mg Tab.er.24h, 30 MG PO DAILY, #30 TAB 3 Refills Prov:VELASQUEZ,PER[employer] ASSOCIATE 06/23/17 Ticagrelor* (Brilinta*) 90 Mg Tablet, 90 MG PO BID, #30 TAB 3 Refills Prov:VELASQUEZ,PER[employer]WORK ASSOCIATE 06/23/17 Aspirin* (Aspirin* EC) 81 Mg Tablet.dr, 81 MG PO DAILY, #30 TAB 3 Refills Prov:VELASQUEZ,PER[employer]WORK ASSOCIATE 06/23/17 Insulin Glargine* (Lantus*) 100 Unit/Ml Soln, 44 UNIT SC daily at 8 am, #30 DOSE Prov:VELASQUEZ,[employer]WORK ASSOCIATE 06/23/17 Medications Current Medications IV Flush (NS 3 ml) 3 ml PER PROTOCOL IV ; Start 10/19/18 at 23:00 Ondansetron HCl (Zofran Inj) 4 mg Q6H PRN IV NAUSEA/VOMITING; Start 10/19/18 at 23:00 Nitroglycerin (Nitroglycerin (Sl Tab) 0.4 Mg) 1 tab Q5M PRN SL .CHEST PAIN; Start 10/19/18 at 23:00 Acetaminophen (Tylenol Tab) 650 mg Q6H PRN PO .PAIN 1-3 OR TEMP; Start 10/19/18 at 23:00 Albuterol/ Ipratropium (Duoneb) 3 ml Q2H RESP THERAPY PRN HHN SHORTNESS OF BREATH; Start 10/19/18 at 23:00 Aspirin (Halfprin) 81 mg DAILY PO Last administered on 10/20/18at 08:10; Admin Dose 81 MG; Start 10/20/18 at 09:00 Atorvastatin Calcium (Lipitor) 80 mg QHS PO ; Start 10/20/18 at 21:00 Bumetanide (Bumex) 1 mg BID DIURETICS PO Last administered on 10/20/18at 05:31; Admin Dose 1 MG; Start 10/20/18 at 06:00 Clopidogrel Bisulfate (plaVIX) 75 mg DAILY PO Last administered on 10/20/18at 08:10; Admin Dose 75 MG; Start 10/20/18 at 09:00 Insulin Glargine (Lantus) 40 units QHS SC ; Start 10/20/18 at 21:00 Isosorbide Mononitrate (Imdur) 180 mg DAILY PO Last administered on 10/20/18at 08:09; Admin Dose 180 MG; Start 10/20/18 at 09:00 Lisinopril (Zestril) 5 mg DAILY PO Last administered on 10/20/18at 08:09; Admin Dose 5 MG; Start 10/20/18 at 09:00 Metoprolol Succinate (Toprol Xl) 200 mg DAILY PO Last administered on 10/20/18at 08:10; Admin Dose 200 MG; Start 10/20/18 at 09:00 Multivitamins Therapeutic (Theragran) 1 tab DAILY PO Last administered on 10/20/18at 08:09; Admin Dose 1 TAB; Start 10/20/18 at 09:00 Heparin Sodium (Porcine) 250 ml @ 10 mls/hr Q24H IV Last administered on 10/20/18at 08:24; Admin Dose 10 MLS/HR; Start 10/20/18 at 07:30 Heparin Sodium (Porcine) (Heparin (1000 Units/ml)) 4,000 unit PRN PRN IV PENDING LAB VALUE; Start 10/20/18 at 07:30 Epoetin Getachew-epbx (Retacrit (Esrd)) 10,000 unit TuThSa@1700 SC ; Start 10/20/18 at 17:00 Diagnostic Test (Pha) (Accu-Chek) 1 ea 02 XX ; Start 10/21/18 at 02:00 Insulin Aspart (Novolog Insulin Pen) NOVOLOG *MILD* ALGORITHM WITH MEALS BEDTIME SC ; Start 10/20/18 at 18:00 Miscellaneous Information 1 ea NOTE XX ; Start 10/20/18 at 16:30 Glucose (Glutose) 15 gm Q15M PRN PO DECREASED GLUCOSE; Start 10/20/18 at 16:30 Glucose (Glutose) 22.5 gm Q15M PRN PO DECREASED GLUCOSE; Start 10/20/18 at 16:30 Dextrose (D50w Syringe) 25 ml Q15M PRN IV DECREASED GLUCOSE; Start 10/20/18 at 16:30 Dextrose (D50w Syringe) 50 ml Q15M PRN IV DECREASED GLUCOSE; Start 10/20/18 at 16:30 Glucagon (Glucagen) 1 mg Q15M PRN IM DECREASED GLUCOSE; Start 10/20/18 at 16:30 Glucose (Glutose) 15 gm Q15M PRN BUCCAL DECREASED GLUCOSE; Start 10/20/18 at 16:30 Allergies: Coded Allergies: No Known Allergy (Unverified , 10/19/18) Past Surgical History Past Surgical Hx: angioplasty, coronary bypass surgery, other (Hemodialysis catheter) Social History Alcohol Use: none Smoking Status: Never smoker Drug Use: none Exam/Review of Systems Vital Signs Vitals Vital Signs Date Temp Pulse Resp B/P (MAP) Pulse Ox O2 O2 Flow FiO2 Time Delivery Rate 10/20/18 98.7 76 16 114/55 98 Room Air 15:30 (74) Intake and Output 10/19/18 10/19/18 10/20/18 1515:00 23:00 07:00 IntakeIntake Total 400 ml BalanceBalance 400 ml Exam Exam No apparent distress Constitutional: alert, oriented, well developed Head: normocephalic Neck: other (Old puncture site seen on left side of neck) Respiratory: other Labs Result Diagram: 10/20/1852110/20/18521 Results 24hrs Laboratory Tests Test 10/19/18 19:16 10/19/18 23:51 10/20/18 05:21 10/20/18 05:22 White Blood Count 14.1 #H 10.3 # Red Blood Count 3.57 L 3.44 L Hemoglobin 9.8 L 9.5 L Hematocrit 29.4 L 29.1 L Mean Corpuscular 82.4 84.6 Volume Mean Corpuscular 27.5 L 27.6 L Hemoglobin Mean Corpuscular 33.3 32.6 Hemoglobin Concent Red Cell Distribution 15.9 H 16.0 H Width Platelet Count 238 # 186 # Mean Platelet Volume 12.4 H 11.4 H Immature Granulocytes 0.900 H 0.700 H % Neutrophils % 74.0 68.3 Lymphocytes % 10.9 L 16.4 Monocytes % 13.3 H 13.0 H Eosinophils % 0.4 1.1 Basophils % 0.5 0.5 Nucleated Red Blood 0.0 0.0 Cells % Immature Granulocytes 0.120 H 0.070 H # Neutrophils # 10.4 H 7.1 Lymphocytes # 1.5 1.7 Monocytes # 1.9 H 1.3 H Eosinophils # 0.1 0.1 Basophils # 0.1 0.1 Nucleated Red Blood 0.0 0.0 Cells # Prothrombin Time 13.4 Prothrombin Time Ratio 1.0 INR International 1.01 Normalized Ratio Activated 32.2 Partial Thromboplast Time Sodium Level 132 L 135 Potassium Level 4.8 4.7 Chloride Level 99 100 Carbon Dioxide Level 18 L 20 L Anion Gap 15 H 15 H Blood Urea Nitrogen 70 H 73 H Creatinine 5.15 H 5.34 H Est Glomerular Filtrat 11 L 11 L Rate mL/min Glucose Level 196 174 Calcium Level 8.7 8.3 L Troponin I 0.129 *H 0.122 *H 0.126 *H Creatine Kinase 91 80 Creatine Kinase Index 4.5 5.0 Creatinine Kinase MB 4.08 H 3.98 H (Mass) Hemoglobin A1c 6.6 H Magnesium Level 2.4 Total Bilirubin 0.3 Direct Bilirubin 0.00 Indirect Bilirubin 0.3 Aspartate Amino 21 Transf (AST/SGOT) Alanine 19 Aminotransferase (ALT/ SGPT) Alkaline Phosphatase 94 Total Protein 6.7 Albumin 3.5 Globulin 3.20 Albumin/Globulin Ratio 1.09 Triglycerides Level 147 Cholesterol Level 116 LDL Cholesterol, 54 Calculated HDL Cholesterol 33 Cholesterol/HDL Ratio 3.5 Thyroid Stimulating 4.330 Hormone (TSH) Test 10/20/18 08:24 10/20/18 11:33 Bedside Glucose 142 Hepatitis B Surface NEGATIVE Antigen Hepatitis B Surface POSITIVE H Antibody Imaging Imaging ECG 5:03 PM sinus rhythm, left bundle, nonspecific ST abnormalities, no significant change compared to ECG done at 4 PM Medications Medications Current Medications IV Flush (NS 3 ml) 3 ml PER PROTOCOL IV ; Start 10/19/18 at 23:00 Ondansetron HCl (Zofran Inj) 4 mg Q6H PRN IV NAUSEA/VOMITING; Start 10/19/18 at 23:00 Nitroglycerin (Nitroglycerin (Sl Tab) 0.4 Mg) 1 tab Q5M PRN SL .CHEST PAIN; Start 10/19/18 at 23:00 Acetaminophen (Tylenol Tab) 650 mg Q6H PRN PO .PAIN 1-3 OR TEMP; Start 10/19/18 at 23:00 Albuterol/ Ipratropium (Duoneb) 3 ml Q2H RESP THERAPY PRN HHN SHORTNESS OF BREATH; Start 10/19/18 at 23:00 Aspirin (Halfprin) 81 mg DAILY PO Last administered on 10/20/18at 08:10; Admin Dose 81 MG; Start 10/20/18 at 09:00 Atorvastatin Calcium (Lipitor) 80 mg QHS PO ; Start 10/20/18 at 21:00 Bumetanide (Bumex) 1 mg BID DIURETICS PO Last administered on 10/20/18at 05:31; Admin Dose 1 MG; Start 10/20/18 at 06:00 Clopidogrel Bisulfate (plaVIX) 75 mg DAILY PO Last administered on 10/20/18at 08:10; Admin Dose 75 MG; Start 10/20/18 at 09:00 Insulin Glargine (Lantus) 40 units QHS SC ; Start 10/20/18 at 21:00 Isosorbide Mononitrate (Imdur) 180 mg DAILY PO Last administered on 10/20/18at 08:09; Admin Dose 180 MG; Start 10/20/18 at 09:00 Lisinopril (Zestril) 5 mg DAILY PO Last administered on 10/20/18at 08:09; Admin Dose 5 MG; Start 10/20/18 at 09:00 Metoprolol Succinate (Toprol Xl) 200 mg DAILY PO Last administered on 10/20/18at 08:10; Admin Dose 200 MG; Start 10/20/18 at 09:00 Multivitamins Therapeutic (Theragran) 1 tab DAILY PO Last administered on 10/20/18at 08:09; Admin Dose 1 TAB; Start 10/20/18 at 09:00 Heparin Sodium (Porcine) 250 ml @ 10 mls/hr Q24H IV Last administered on 10/20/18at 08:24; Admin Dose 10 MLS/HR; Start 10/20/18 at 07:30 Heparin Sodium (Porcine) (Heparin (1000 Units/ml)) 4,000 unit PRN PRN IV PENDING LAB VALUE; Start 10/20/18 at 07:30 Epoetin Getachew-epbx (Retacrit (Esrd)) 10,000 unit TuThSa@1700 SC ; Start 10/20/18 at 17:00 Diagnostic Test (Pha) (Accu-Chek) 1 ea 02 XX ; Start 10/21/18 at 02:00 Insulin Aspart (Novolog Insulin Pen) NOVOLOG *MILD* ALGORITHM WITH MEALS BEDTIME SC ; Start 10/20/18 at 18:00 Miscellaneous Information 1 ea NOTE XX ; Start 10/20/18 at 16:30 Glucose (Glutose) 15 gm Q15M PRN PO DECREASED GLUCOSE; Start 10/20/18 at 16:30 Glucose (Glutose) 22.5 gm Q15M PRN PO DECREASED GLUCOSE; Start 10/20/18 at 16:30 Dextrose (D50w Syringe) 25 ml Q15M PRN IV DECREASED GLUCOSE; Start 10/20/18 at 16:30 Dextrose (D50w Syringe) 50 ml Q15M PRN IV DECREASED GLUCOSE; Start 10/20/18 at 16:30 Glucagon (Glucagen) 1 mg Q15M PRN IM DECREASED GLUCOSE; Start 10/20/18 at 16:30 Glucose (Glutose) 15 gm Q15M PRN BUCCAL DECREASED GLUCOSE; Start 10/20/18 at 16:30 Yue Rodriguez DO Oct 20, 2018 16:51
[2018-10-20] MEDS ORDERED: HYDROmorphONE 1 MG/ML SYG IV ONE (18:30)
[2018-10-20] MEDS ORDERED: HYDROmorphONE 0.5 MG/0.5 ML SYG IV PRN (18:30)
[2018-10-20] MEDS ORDERED: INSULIN GLARGINE [LANTus] (100 UNITS/ML) SYG SC SCH (21:00)
[2018-10-20] MEDS ORDERED: ATORVASTATIN 80 MG TAB PO SCH (21:00)
[2018-10-20] MEDS ORDERED: METOPROLOL (XL) 100 MG TAB PO ONE (22:32)
[2018-10-21 00:48] VITALS: BP 130/72; PULSE 89; RESP 18
[2018-10-21] MEDS: HEPARIN 25000 UNITS/D5W 250 ML IV SCH ×2 (01:58→10:03)
[2018-10-21] MEDS ORDERED: ACCU-CHEK XX SCH (02:00)
--- NOTE | 2018-10-21 03:29 | CONS ---
DATE OF ADMISSION: 10/19/2018 DATE OF CONSULTATION: 10/20/2018 TYPE OF CONSULTATION: Nephrology. REASON FOR CONSULTATION: End-stage renal disease. REQUESTING PHYSICIAN: Dr. Stewart. HISTORY OF PRESENT ILLNESS: This is a 62-year-old male with a recent diagnosis of end-stage renal di olga, history of coronary artery disease, history of cardiomyopathy, presented to [facility] with complaints of headaches. The patient was recently admitted to [facility] ere he underwent cardiac cath, 3 stents were placed. The patient subsequently initially had hemodial ysis as he was a CKD IV patient. The patient was then subsequently discharged with anticipation of o utpatient hemodialysis to be continued. The patient then, at the time of discharge, talked about sig nificant right-sided neck pain. In the ER, patient had elevated troponin. He was subsequently admit yessi to telemetry for evaluation. The patient was placed on heparin drip. The patient has recently been started on hemodialysis at an outside hospital and is pending his dialy sis schedule is on a Wednesday, and Wednesday and the patient has access AV fistula. PAST MEDICAL HISTORY: History of coronary artery disease, history of end-stage renal disease, histor y of cardiomyopathy, diabetes, hypertension. PAST SURGICAL HISTORY: Status post CABG, status post cardiac catheterization, status post Perm-A-Cat h placement. SOCIAL HISTORY: No alcohol, drug use. FAMILY HISTORY: No family history of kidney disease. MEDICATIONS: The patient's medications have been reviewed. ALLERGIES: Have been reviewed. REVIEW OF SYSTEMS: A 14-point review of systems conducted. Pertinent positives stated in HPI, other newman negative. PHYSICAL EXAMINATION: VITAL SIGNS: Blood pressure is 107/42, respirations 14, pulse 69, temperature 98.2. HEENT: Head is normocephalic. NECK: Supple. HEART: Regular rate. LUNGS: Show diminished breath sounds at the base. ABDOMEN: Soft, nontender to palpation without rebound or guarding. EXTREMITIES: Negative for clubbing, cyanosis, no edema. DERMATOLOGIC: No rashes. MUSCULOSKELETAL: No joint effusion. NEUROLOGIC: No focal deficits. LABORATORY DATA: Has been reviewed. IMAGING STUDIES: Have been reviewed. ASSESSMENT AND PLAN: 1. End-stage renal disease. The plan is for hemodialysis today. Will dialyze 3 hours, 3k bath, anusha cium 2.5. Access is a Perm-A-Cath, ultrafiltrate as tolerated. 2. Anemia. Monitor hemoglobin and hematocrit levels. Will give Epogen as needed. 3. Mineral bone disorder. Monitor calcium and phosphorus levels. 4. Metabolic acidosis. Continue dialysis on a high bicarbonate bath. 5. Coronary artery disease. The patient is status post recent cardiac catheterization with stent pl acement. Continue to monitor. 6. Left-side neck pain. The patient is status post CT angio which shows right internal carotid occl usion. Continue to monitor. Continue anticoagulation. Follow up with vascular surgery. 7. Elevated troponin, questionable non-ST elevation myocardial infarction type 1, type 2. Follow up with cardiology. Continue antiplatelet. Continue Lipitor. 8. Diabetes. Continue current insulin regimen. 9. Hypertension. Continue current blood pressure regimen. Thank you, Dr. Stewart, for this interesting consult. It will be a pleasure to follow the patient with you throughout the hospital course. Dictated By: KAIN VANEGAS DO NR/NTS Conf#: [id number] DID#: [id number] CC: TUYET STEWART MD;*EndCC*
[2018-10-21 04:40] VITALS: BP 128/65; PULSE 78; RESP 18
[2018-10-21] MEDS: BUMETANIDE 1 MG TAB PO SCH (06:26)
[2018-10-21 07:23] VITALS: BP 102/50; PULSE 79; RESP 18
--- NOTE | 2018-10-21 07:57 | PN ---
DATE: 10/21/2018 SUBJECTIVE: The patient had hemodialysis yesterday, tolerated well with 1.5 liters removed. The pat ient's shortness of breath is improving. No other events noted. OBJECTIVE: VITAL SIGNS: Blood pressure is 128/65, respiration 18, pulse 78, temperature 98.7. HEENT: Head is normocephalic. NECK: Supple. HEART: Regular rate. LUNGS: Show diminished breath sounds at the base. ABDOMEN: Soft, nontender to palpation without rebound or guarding. EXTREMITIES: Negative for clubbing, cyanosis. Trace edema. DERMATOLOGIC: No rashes. MUSCULOSKELETAL: No joint effusion. NEUROLOGIC: No change in exam. MEDICATIONS: Reviewed. LABORATORY DATA: Has been reviewed. IMAGING STUDIES: Have been reviewed. ASSESSMENT AND PLAN: 1. End-stage renal disease. The patient had hemodialysis yesterday, tolerated well. Plan for dialy sis again tomorrow. 2. Anemia. Continue to monitor hemoglobin and hematocrit levels. Give Epogen as needed. 3. Mineral bone disorder. Monitor calcium and phosphorus levels. 4. Metabolic acidosis, improved. Continue dialysis on high bicarbonate bath. 5. Coronary artery disease. The patient is status post recent cardiac catheterization with stent pl acement. Continue medical management. Follow up with cardiology. 6. Elevated troponin, unclear if this is non-ST elevation myocardial infarction type 2 versus type 1 . Questionable occlusion of the graft. Will follow up with cardiology. Continue current treatment plan. 7. Diabetes. Continue current insulin management. 8. Hypertension. Continue current blood pressure regimen. 9. Left-sided neck pain. The patient has a CT angio shows right internal carotid occlusion. Contin ue to monitor. Continue current anticoagulation. Follow with vascular surgery. Dictated By: KAIN VANEGAS DO NR/NTS Conf#: [id number] DID#: [id number] CC: TUYET STEWART MD;*EndCC*
[2018-10-21] MEDS ORDERED: SEVELAMER CARBONATE 800 MG TABLET PO SCH (08:00)
[2018-10-21] MEDS: INSULIN ASPART [NOVOLOG] 3 ML PEN SC SCH (08:41)
[2018-10-21] MEDS ORDERED: METOPROLOL (XL) 100 MG TAB PO SCH (09:00)
[2018-10-21] MEDS: LISINOPRIL 5 MG TAB PO SCH (09:00)
[2018-10-21] MEDS: ISOSORBIDE MONONITRATE(SR)60 MG TAB PO SCH (09:48)
[2018-10-21] MEDS: MULTIVITAMINS THERAPEUTIC TAB PO SCH (09:48)
[2018-10-21] MEDS: ASPIRIN (EC) 81 MG TAB PO SCH (09:49)
[2018-10-21] MEDS: CLOPIDOGREL 75 MG TAB PO SCH (09:50)
--- NOTE | 2018-10-21 10:38 | DS ---
Date/Time of Note Date/Time of Note DATE: 10/21/18 TIME: 10:22 Discharge Summary Admission/Discharge Info Admit Date/Time Oct 19, 2018 at 22:32 Discharge Date/Time Discharge Diagnosis 62 yo M who presented to ER with pain in the L side of his neck where he had just recently had HD cathether removed but with a concerning hx of recent angiogram and stent placement admitted and managed as follow: L sided neck pain: -may be indicative of ACS or may just be DIANA from recent dialysis access placement -CTA neck shows diffuse Carotid arterial disease and occlusion -pain control, Vascular consult pending -see # 2 re: ACS 2. Troponin elevation s/p recent NSTEMI status post recent PCI, -Hx of CABG in the past -troponin levels trending up -patient is on heparin drip, aspirin and plavix -Echo showed Mild cardiomyopathy, EF 40 to 45% and restrictive picture with diastolic dysfunction, stage III-IV -transfer to [facility] for higher level of care 3. ESRD on HD -resumed on HD 4. DM 2 -resumed on SSI and basal / premeal insulin 5. Hx of CAD s/p CABG with Chronic CM and diastolic dysfunction -patient maintained on home Bumex in addition to routine HD 6. HTN 7. s/p Pacemaker Patient Condition: Stable Consults Cardiology : Enrike Mark MD Nephrology: Brayan Guerra DO . Procedures See attached records . Hospital Course This is a very pleasant 62-year-old male with a past medical history of coronary artery disease status post recent PCI, ESRD on hemodialysis, newly diagnosed, diabetes mellitus type 2, chronic cardiomyopathy with diastolic dysfunction, status post pacemaker placement, peripheral vascular disease, carotid artery disease who was recently discharged from [facility] where he was managed for shortness of breath after a 2-week admission. He underwent PCI with stent placement x3 probably for NSTEMI after which he developed renal failure and had to be started on hemodialysis. He had a temporary dialysis catheter placed in his left neck and this was later removed and transferred to his right anterior chest wall. He came to the emergency room complaining of severe left-sided 10 out of 10 neck pain. In the emergency room, his troponins were elevated to 0.129. He was admitted for further work-up as his neck pain could have been from recent dialysis access placement or could be atypical presentation of another coronary syndrome. His troponin is initially trended down, but his pain persisted, and at this time patient is requiring hydromorphone for pain control. Also, concurrently his troponin started to rise and last troponin level was 6.590. Cardiology consultation was obtained upon arrival, our in-house cardiology spoke with tire classifier at [facility], for patient safety and optimization, and the decision was made to transfer him back to [facility] for continued care management. Also of note is that we do not have a functional Barker Operator at this time, and as such the patient cannot receive the intervention that he requires. The patient is currently maintained on a heparin drip and PRN hydromorphone. His other medical problems were also managed as per protocol, please see records for details, overall the patient is stable for transfer to an inpatient setting for continued management. Also of note is that CT a of the neck and brain was concerning for diffuse carotid artery disease bilaterally with 40% stenosis of the proximal left ICA and occlusion of right ICA at its origin continue to the intracranial segments. There is also severe focal stenosis of the right cervical vertebral artery at C4. Please see attached report for details. Vascular surgical consultation was obtained, but was yet to see the patient at the time of transfer. . Home Meds Reported Medications Ergocalciferol (Vitamin D2) (VITAMIN D2) 50,000 Unit Capsule, 05830 UNIT PO EVERY WEDNESDAY, CAP 10/19/18 Multivitamins* (Theragran*) 1 Tab Tab, 1 TAB PO DAILY, TAB 10/19/18 Insulin Glargine* (Lantus*) 100 Unit/Ml Soln, 40 UNIT SC QHS, #1 VIAL 10/19/18 Hydralazine Hcl* (Hydralazine Hcl*) 50 Mg Tab, 50 MG PO TID, #90 TAB 10/19/18 Isosorbide Mononitrate* (Isosorbide Mononitrate*) 120 Mg Tab.sr.24h, 180 MG PO DAILY, TAB.SA 10/19/18 Lisinopril* (Lisinopril*) 5 Mg Tablet, 5 MG PO DAILY, #30 TAB 10/19/18 Metoprolol Succinate* (Toprol XL*) 200 Mg Tab.sr.24h, 200 MG PO DAILY, #30 TAB 10/19/18 Bumetanide* (Bumetanide*) 1 Mg Tablet, 1 MG PO BID, TAB 7/31/19 Clopidogrel Bisulfate (Clopidogrel) 75 Mg Tablet, 75 MG PO DAILY, #30 TAB 10/19/18 Atorvastatin* (Atorvastatin*) 80 Mg Tablet, 80 MG PO QHS, #30 TAB 10/19/18 Aspirin (Low Dose Aspirin) 81 Mg Tablet., 81 MG PO DAILY, #30 TAB 10/19/18 Discontinued Reported Medications Insulin Lispro (Humalog) 100 Unit/1 Ml Cartridge, 10 UNIT SQ AC MEALS, EA 06/13/17 Atorvastatin* (Atorvastatin*) 80 Mg Tablet, 80 MG PO QHS, #30 TAB 06/13/17 Carvedilol* (Carvedilol*) 25 Mg Tablet, 25 MG PO BID, #60 TAB 06/13/17 Discontinued Scripts Hydrocodone/Acetaminophen ([place] 5-325 Tablet) 1 Each Tablet, 1 TAB PO Q6H PRN for PAIN, #20 TAB Prov:ENRIKE ZAMUDIO DO 11/04/17 Erythromycin Base (Erythromycin) 1 Gm Oint...g., 1 GM OP QID for corneal abrasion left eye for 7 Days, #1 Prov:ENRIKE ZAMUDIO DO 11/04/17 Bumetanide* (Bumetanide*) 1 Mg Tablet, 1 MG PO DAILY, #30 TAB 3 Refills Prov:VELASQUEZ,PERFECTO V. REINSTATEMENT CLERK 06/23/17 Isosorbide Mononitrate* (Isosorbide Mononitrate*) 30 Mg Tab.er.24h, 30 MG PO DAILY, #30 TAB 3 Refills Prov:VELASQUEZ,PERFECTO V. REINSTATEMENT CLERK 06/23/17 Ticagrelor* (Brilinta*) 90 Mg Tablet, 90 MG PO BID, #30 TAB 3 Refills Prov:VELASQUEZ,PERFECTO V. REINSTATEMENT CLERK 06/23/17 Aspirin* (Aspirin* EC) 81 Mg Tablet., 81 MG PO DAILY, #30 TAB 3 Refills Prov:VELASQUEZ,PERFECTO V. REINSTATEMENT CLERK 06/23/17 Insulin Glargine* (Lantus*) 100 Unit/Ml Soln, 44 UNIT SC daily at 8 am, #30 DOSE Prov:VELASQUEZ,PERFECTO V. REINSTATEMENT CLERK 06/23/17 Follow-up Plan Patient is being transferred to inpatient setting for continued management . Primary Care Provider Oganes Paronian Time spent on discharge: > 30 minutes Pending Labs Laboratory Tests Test 10/20/18 11:33 10/20/18 15:57 10/20/18 17:45 10/20/18 17:48 Hepatitis B NEGATIVE (NEGAT Surface ERIKA) Antigen Hepatitis B POSITIVE (NEGAT Surface ERIKA) Antibody Activated 81.2 Partial Thrombo Sec (23.0-35.0 plast Time ) Creatine 88 Kinase IU/L (23-200) Creatine Kinase 5.4 Index Creatinine 4.71 Kinase MB ng/ml (0.0-2.4 (Mass) ) Troponin I 0.073 ng/ml (0.000-0 .120) Bedside 386 Glucose mg/dL (70-220) Test 10/20/18 21:37 10/20/18 21:38 10/20/18 23:44 10/21/18 02:36 Creatine 101 Kinase IU/L (23-200) Creatine Kinase 5.9 Index Creatinine 6.00 Kinase MB ng/ml (0.0-2.4) (Mass) Troponin I 0.488 ng/ml (0.000-0. 120) Bedside 242 205 Glucose mg/dL (70-220) mg/dL (70-220) Activated 93.6 Partial Thrombo Sec (23.0-35.0 plast Time ) Test 10/21/18 05:35 10/21/18 08:04 10/21/18 08:26 White Blood 9.7 Count 10^3/ul (4.8-10 .8) Red Blood 3.69 Count 10^6/ul (4.70-6 .10) Hemoglobin 9.9 g/dl (14.0-18.0 ) Hematocrit 31.2 % (42.0-52.0) Mean 84.6 Corpuscular fl (82.0-101.0) Volume Mean 26.8 Corpuscular pg (29.0-33.0) Hemoglobin Mean 31.7 Corpuscular g/dl (32.0-37.0 Hemoglobin Conc ) ent Red Cell 16.0 Distribution % (11.5-14.5) Width Platelet Count 208 10^3/UL (140-41 5) Mean Platelet 11.9 Volume fl (7.4-10.4) Immature 0.500 Granulocytes % % (0.001-0.429) Neutrophils % 72.3 % (39.0-77.0) Lymphocytes % 14.5 % (15.0-51.0) Monocytes % 10.7 % (0.0-11.0) Eosinophils % 1.4 % (0.0-7.0) Basophils % 0.6 % (0.0-2.0) Nucleated Red 0.0 Blood Cells % /100WBC (0.0-0. 0) Immature 0.050 Granulocytes # 10^3/ul (0.0-0. 031) Neutrophils # 7.0 10^3/ul (1.6-7. 5) Lymphocytes # 1.4 10^3/ul (0.8-2. 9) Monocytes # 1.0 10^3/ul (0.3-0. 9) Eosinophils # 0.1 10^3/ul (0.0-0. 5) Basophils # 0.1 10^3/ul (0.0-0. 1) Nucleated Red 0.0 Blood Cells # 10^3/ul (0.0-0. 0) Sodium Level 137 mmol/L (135-144 ) Potassium 4.7 Level mmol/L (3.5-5.1 ) Chloride Level 100 mmol/L (97-110) Carbon Dioxide 23 Level mmol/L (21-31) Anion Gap 14 (5-13) Blood Urea 42 mg/dl (7-20) Nitrogen Creatinine 4.05 mg/dl (0.61-1.2 4) Est Glomerular 15 mL/min (>60) Filtrat Rate mL/min Glucose Level 143 mg/dl (70-220) Calcium Level 8.6 mg/dl (8.4-10.2 ) Phosphorus 5.1 Level mg/dl (2.5-4.9) Magnesium 2.1 Level mg/dl (1.7-2.5) Creatine 202 Kinase IU/L (23-200) Creatine Kinase 7.4 Index Creatinine 14.90 Kinase MB ng/ml (0.0-2.4) (Mass) Troponin I 6.590 ng/ml (0.000-0. 120) Bedside 257 Glucose mg/dL (70-220) Activated 52.0 Partial Thrombo Sec (23.0-35.0 plast Time ) GAL SANTIAGO Oct 21, 2018 10:34
--- NOTE | 2018-10-21 16:03 | RADRPT ---
Vent Rate: 87 bpm RR Interval: 692 msec [place] Interval: 164 msec QRS Duration: 103 msec QT Interval: 383 msec QTC Interval: 460 msec P-R-T [place]: 26 - -17 - 158 degrees Sinus rhythm...normal P axis, V-rate 50- 99 Repol abnrm IVCD Electronically Signed By: Enrike Rodriguez
--- NOTE | 2018-10-21 16:20 | RADRPT ---
Vent Rate: 88 bpm RR Interval: 680 msec [place] Interval: 169 msec QRS Duration: 124 msec QT Interval: 370 msec QTC Interval: 449 msec P-R-T [place]: 33 - 11 - 169 degrees Sinus rhythm...normal P axis, V-rate 50- 99 Nonspecific intraventricular conduction delay...QRSd >115mS, not LBBB/RBBB Repol abnrm Electronically Signed By: Enrike Rodriguez
== END 2018-10-21 11:00 | disposition short-term general hospital (02) | DRG 67 ==
LOC: E/R 18:41 → 6WM 22:32
PROVIDERS: ADMIT Internal Medicine; ATTEND Family Medicine
PROC: 5A1D70Z Performance of Urinary Filtration, Intermittent, Less than 6 Hours Per Day (ICD-10-PCS; principal; 2018-10-20)
DX: I65.23 Occlusion and stenosis of bilateral carotid arteries (principal); N18.6 End stage renal disease; I21.4 Non-ST elevation (NSTEMI) myocardial infarction; I22.2 Subsequent non-ST elevation (NSTEMI) myocardial infarction; I12.0 Hypertensive chronic kidney disease with stage 5 chronic kidney disease or end stage renal disease; N17.9 Acute kidney failure, unspecified; E87.2 Acidosis; I65.01 Occlusion and stenosis of right vertebral artery; I25.5 Ischemic cardiomyopathy; I25.10 Atherosclerotic heart disease of native coronary artery without angina pectoris; R51 Headache; I73.9 Peripheral vascular disease, unspecified; D64.9 Anemia, unspecified; Z79.4 Long term (current) use of insulin; Z79.82 Long term (current) use of aspirin; Z79.01 Long term (current) use of anticoagulants; Z99.2 Dependence on renal dialysis; Z95.1 Presence of aortocoronary bypass graft; Z95.5 Presence of coronary angioplasty implant and graft; Z95.0 Presence of cardiac pacemaker
CPT/HCPCS: 36415; 70450; 70496; 70498; 71045; 80048; 80053; 80061; 82550; 82553; 82962; 83036; 83735; 84100; 84443; 84484; 85025; 85610; 85730; 86706; 87081; 87340; 90935; 93005; 93306; 93308; 96374; 96375; J1170; J1644; J1815; J2270; J2765; J3010; J7040; Q5105; Q9967